=== PATIENT | male | born 1995 | race Caucasian/White ===

== ENCOUNTER 2021-01-02 12:14 | Emergency (ER) | payer OTHER ==
[~2021-01-02] VITALS: Ht 172.7 cm; Wt 68.0 kg
[2021-01-02] MEDS ORDERED: IBUPROFEN 800 MG (MOTRIN) TAB PO STA (12:48)
[2021-01-02] MEDS ORDERED: TETANUS,DIPTH,PERTUSS P/F (BOOSTRIX) 0.5 ML VIAL IM ONE (13:00)
--- NOTE | 2021-01-02 13:12 | ED Lower Extremity ---
General Chief Complaint: Bite-Animal/Human/Insect Stated Complaint: R KNEE SWOLLEN, WOUND Nursing Triage Note: NOTICED RED AREA ON HIS RIGHT KNEE YSETERDAY AND TRIED TO GO TO WORK TODAY AND WAS UNABLE TO HANDLE THE PAIN FROM HIS RED SWOLLEN RIGHT KNEE. History of Present Illness Date Seen by Provider: Jan 02, 2021 Time Seen by Provider: 12:45 Initial Comments 25-year-old male presents for right knee pain and swelling with mild erythema anteriorly. He reports that the symptoms were very mild yesterday and have worsened today. He has had no previous history of injuries or surgeries to his right knee. He has not taken any medications prior to arrival. There are 2 small puncture sites on the right knee, he is unaware of a spider or other insect bite. He denies any fevers or other systemic symptoms. He is able to ambulate but with pain in the right knee. [facility] Onset: yesterday Pain/Injury Location: right knee Method of Injury: unknown Modifying Factors: Improves With Rest Allergies and Home Medications Allergies Coded Allergies: No Known Drug Allergies (Unverified , 01/02/21) Home Medications Sulfamethoxazole/Trimethoprim 1 Each Tablet, 1 EACH PO BID Prescribed by: ANDREA DELACRUZ on 01/02/21 1351 Patient Home Medication List Home Medication List Reviewed: Yes Review of Systems Constitutional: no symptoms reported, see HPI Musculoskeletal: see HPI, joint pain (Right knee) Skin: see HPI, change in color (Erythema and pain right anterior knee) All Other Systems Reviewed Negative Unless Noted: Yes Past Ujhrixj-Uwxbqc-Rcwaqm Hx Patient Social History Tobacco Use?: Yes Tobacco type used: Cigarettes Smoking Status: Light Tobacco Smoker Use of E-Cig and/or Vaping dev: No Substance use?: No Alcohol Use?: No Pt feels they are or have been: No Immunizations Up To Date Influenza Vaccine Up-to-Date: Yes; Up-to-Date Family Medical History Reviewed Nursing Family Hx Physical Exam Vital Signs Vital Signs - First Documented 01/02/21 12:42 Temp 37.0 Pulse 99 Resp 18 B/P (MAP) 149/82 (104) Pulse Ox 98 Capillary Refill : Height, Weight, BMI Height: '" Weight: lbs. oz. kg; 22.00 BMI Method: General Appearance: WD/WN, no apparent distress Cardiovascular: normal peripheral pulses, regular rate, rhythm Respiratory: chest non-tender, lungs clear, normal breath sounds Knees: right knee normal range of motion (With pain), right knee no evidence of injury, right knee pain, right knee soft tissue tenderness, right knee swelling (Prepatellar), right knee other (Mild erythema anteriorly) Neurologic/Tendon: normal sensation, normal motor functions, normal tendon functions Neurologic/Psychiatric: no motor/sensory deficits, alert, normal mood/affect, oriented x 3 Skin: normal color, warm/dry Progress/Results/Core Measures Results/Orders Lab Results Laboratory Tests Test 01/02/21 13:35 Range/Units White Blood Count 10.7 4.3-11.0 10^3/uL Red Blood Count 4.93 4.30-5.52 10^6/uL Hemoglobin 15.2 13.3-17.7 g/dL Hematocrit 44 40-54 % Mean Corpuscular Volume 89 80-99 fL Mean Corpuscular Hemoglobin 31 25-34 pg Mean Corpuscular Hemoglobin Concent 35 32-36 g/dL Red Cell Distribution Width 12.3 10.0-14.5 % Platelet Count 181 130-400 10^3/uL Mean Platelet Volume 10.3 9.0-12.2 fL Immature Granulocyte % (Auto) 0 % Neutrophils (%) (Auto) 75 42-75 % Lymphocytes (%) (Auto) 15 12-44 % Monocytes (%) (Auto) 8 0-12 % Eosinophils (%) (Auto) 1 0-10 % Basophils (%) (Auto) 0 0-10 % Neutrophils # (Auto) 8.0 H 1.8-7.8 10^3/uL Lymphocytes # (Auto) 1.7 1.0-4.0 10^3/uL Monocytes # (Auto) 0.8 0.0-1.0 10^3/uL Eosinophils # (Auto) 0.1 0.0-0.3 10^3/uL Basophils # (Auto) 0.0 0.0-0.1 10^3/uL Immature Granulocyte # (Auto) 0.0 0.0-0.1 10^3/uL Erythrocyte Sedimentation Rate 1 0-15 MM/HR Sodium Level 139 135-145 MMOL/L Potassium Level 4.1 3.6-5.0 MMOL/L Chloride Level 104 98-107 MMOL/L Carbon Dioxide Level 25 21-32 MMOL/L Anion Gap 10 5-14 MMOL/L Blood Urea Nitrogen 16 7-18 MG/DL Creatinine 1.25 0.60-1.30 MG/DL Estimat Glomerular Filtration Rate 71 BUN/Creatinine Ratio 13 Glucose Level 99 70-105 MG/DL Calcium Level 9.8 8.5-10.1 MG/DL Corrected Calcium 8.5-10.1 MG/DL Total Bilirubin 0.9 0.1-1.0 MG/DL Aspartate Amino Transf (AST/SGOT) 29 5-34 U/L Alanine Aminotransferase (ALT/SGPT) 35 0-55 U/L Alkaline Phosphatase 57 40-136 U/L C-Reactive Protein High Sensitivity 1.01 H 0.00-0.50 MG/DL Total Protein 7.1 6.4-8.2 GM/DL Albumin 4.6 H 3.2-4.5 GM/DL My Orders Orders - ANDREA DELACRUZ Ibuprofen Tablet (Motrin Tablet) (01/02/21 12:48) Dipht,Pertuss(Acell),Tet Adult (Boostrix (01/02/21 13:00) Cbc With Automated Diff (01/02/21 12:55) Comprehensive Metabolic Panel (01/02/21 12:55) Hs C Reactive Protein (01/02/21 12:55) Erythrocyte Sedimentation Rate (01/02/21 12:55) Knee, Right, 3 Views (01/02/21 12:55) Wound Culture (01/02/21 12:55) Medications Given in ED Current Medications Medications Dose Ordered Sig/Alex Route Start Time Stop Time Status Last Admin Dose Admin Diphtheria/ Tetanus/Acell Pertussis 0.5 ml ONCE ONCE IM 01/02/21 13:00 01/02/21 13:01 DC 01/02/21 13:02 0.5 ML Vital Signs/I&O 01/02/21 12:42 Temp 37.0 Pulse 99 Resp 18 B/P (MAP) 149/82 (104) Pulse Ox 98 Blood Pressure Mean: 104 Progress Progress Note : Time: 12:45 Progress Note Patient seen and evaluated, cellulitis appears to be in the soft tissue and not intra-articular into the right knee joint. Will obtain basic labs and x-ray of the right knee. Ibuprofen 800 mg for pain. Small pustular area to anterior knee, trace amount of purulent drainage expelled and collected for culture. 1330 x-ray shows prepatellar effusion, no other significant abnormalities. Raúl wrap to right knee. Discharge instructions and return precautions reviewed. All questions answered. Diagnostic Imaging Diagonstic Imaging: Xray Plain Films/CT/US/NM/MRI: knee Comments NAME: MORENA ANDREWS [facility] REC#: [id number] PT STATUS: REG ER : 1995 PHYSICIAN: ANDREA DELACRUZ ADMIT DATE: 01/02/21/ER Draft Date of Exam:01/02/21 KNEE, RIGHT, 3 VIEWS INDICATION: Knee pain. Three views were obtained. FINDINGS: The alignment is normal. There is no fracture or dislocation. There is some mild prepatellar soft tissue swelling. IMPRESSION: Prepatellar soft tissue swelling otherwise unremarkable. Dictated on workstation # [id number] Dict: 01/02/21 1346 Trans: 01/02/21 1401 [facility] [phone] Interpreted by: CATRINA NAPIER MD Electronically signed by: Reviewed: Reviewed by Me Departure Impression Primary Impression: Cellulitis of right knee Disposition: HOME, SELF-CARE Condition: Improved Departure-Patient Inst. Decision time for Depature: 13:55 Referrals: NO,LOCAL PHYSICIAN (PCP/Family) Primary Care Physician Patient Instructions: Insect Bites and Stings (DC), Cellulitis (Skin Infection), Adult (DC) Add. Discharge Instructions: You may alternate between Tylenol 650 mg and ibuprofen 600 mg every 4 hours for pain or fever. Do not apply any heat to the right knee, you may apply ice packs 20 minutes every 2 hours as needed. Take antibiotics as prescribed. Schedule an appointment with your primary care provider [facility] for early next week, see them sooner if symptoms are worsening. Use Raúl wrap to help with swelling. Return to the emergency department for new, urgent healthcare needs. All discharge instructions reviewed with patient and/or family. Voiced understanding. Scripts Sulfamethoxazole/Trimethoprim (Bactrim Ds Tablet) 1 Each Tablet 1 EACH PO BID, #20 TAB 0 Refills Prov: ANDREA DELACRUZ 01/02/21 Work/School Note: Work Release Form Date Seen in the Emergency Department: Jan 02, 2021 Return to Work: Jan 04, 2021 Restrictions: No Restrictions ANDREA DELACRUZ Jan 02, 2021 13:12
[2021-01-02 13:41] LABS: BASOPHILS % (AUTO) 0 % (0-10); EOSINOPHILS # (AUTO) 0.1 10^3/uL (0.0-0.3); EOSINOPHILS % (AUTO) 1 % (0-10); HEMATOCRIT 44 % (40-54); HEMOGLOBIN 15.2 g/dL (13.3-17.7); LYMPHOCYTES # (AUTO) 1.7 10^3/uL (1.0-4.0); LYMPHOCYTES % (AUTO) 15 % (12-44); MEAN CORPUSCULAR HEMOGLOBIN 31 pg (25-34); MEAN CORPUSCULAR HGB CONC 35 g/dL (32-36); MEAN CORPUSCULAR VOLUME 89 fL (80-99); MEAN PLATELET VOLUME 10.3 fL (9.0-12.2); MONOCYTES # (AUTO) 0.8 10^3/uL (0.0-1.0); MONOCYTES % (AUTO) 8 % (0-12); NEUTROPHILS % (AUTO) 75 % (42-75); PLATELET COUNT 181 10^3/uL (130-400); WHITE BLOOD COUNT 10.7 10^3/uL (4.3-11.0)
[2021-01-02] MEDS ORDERED: SULF1TAB38 PO (13:51)
[2021-01-02 13:54] LABS: ALBUMIN 4.6 GM/DL (3.2-4.5); CHLORIDE 104 MMOL/L (98-107); POTASSIUM 4.1 MMOL/L (3.6-5.0); SODIUM 139 MMOL/L (135-145)
[2021-01-02 13:55] LABS: CALCIUM 9.8 MG/DL (8.5-10.1)
[2021-01-02 13:56] LABS: GLUCOSE 99 MG/DL (70-105); TOTAL PROTEIN 7.1 GM/DL (6.4-8.2)
[2021-01-02 13:57] LABS: CARBON DIOXIDE 25 MMOL/L (21-32)
[2021-01-02 13:58] LABS: BILIRUBIN,TOTAL 0.9 MG/DL (0.1-1.0)
[2021-01-02 14:00] LABS: ALKALINE PHOSPHATASE 57 U/L (40-136); CREATININE SERUM 1.25 MG/DL (0.60-1.30); ERYTHROCYTE SEDIMENTATION RATE 1 MM/HR (0-15); GFR ESTIMATED 71
[2021-01-02 14:01] LABS: BUN/CREATININE RATIO 13
[2021-01-02 14:03] LABS: ALANINE AMINOTRANSFERASE 35 U/L (0-55)
--- NOTE | 2021-01-02 14:03 | Diagnostic Imaging Report ---
INDICATION: Knee pain. Three views were obtained. FINDINGS: The alignment is normal. There is no fracture or dislocation. There is some mild prepatellar soft tissue swelling. IMPRESSION: Prepatellar soft tissue swelling otherwise unremarkable. Dictated by: Dictated on workstation # [id number]
[2021-01-02 14:36] VITALS: BP 145/78
== END 2021-01-02 14:37 | disposition home or self-care (01) ==
LOC: ER 12:18
DX: L03.115 Cellulitis of right lower limb (principal); F17.210 Nicotine dependence, cigarettes, uncomplicated; Z23 Encounter for immunization
CPT/HCPCS: 36415; 73562; 80053; 85025; 85652; 86141; 87070; 87077; 87186; 87205; 90715